=== PATIENT | male | born 1985 | race Hispanic/Latino ===

== ENCOUNTER → 2020-09-05 | Outpatient (CLI) | payer OTHER ==
[~2020-09-05] MED LIST: COVID-19 VACC, MRNA(MODERNA)/PF 100 MCG/0.5 ML VIAL IM ONE
== END ==
LOC: VACCPMC 18:03
DX: Z23 Encounter for immunization (principal); Z20.822 Contact with and (suspected) exposure to COVID-19
CPT/HCPCS: 91301

== ENCOUNTER → 2020-10-03 | Outpatient (CLI) | payer OTHER | END | disposition home or self-care (01) | LOC: VACCPMC 14:18 | DX: Z23 Encounter for immunization (principal); Z20.822 Contact with and (suspected) exposure to COVID-19 | CPT/HCPCS: 91301 ==

== ENCOUNTER → 2022-05-15 | Outpatient (RCR) | payer BC | LOC: OT 04-22 14:39 | PROVIDERS: ATTEND Specialist | DX: M75.41 Impingement syndrome of right shoulder (principal) ==

== ENCOUNTER 2022-06-20 10:59 | Outpatient (RCR) | payer BC | END 2022-07-16 | LOC: OT 10:59 | PROVIDERS: ATTEND Specialist | DX: M75.41 Impingement syndrome of right shoulder (principal); M19.011 Primary osteoarthritis, right shoulder ==